=== PATIENT | female | born 1960 | race Caucasian/White ===

== ENCOUNTER 2018-11-27 16:06 | Inpatient (IN) | payer OTHER, MEDICARE ==
[~2018-11-27] VITALS: Ht 163.8 cm; Wt 131.8 kg
[~2018-11-27 16:06] MED LIST: ANTIVERT25 MG PO; ASPIRIN325 MG PO; ASPIRIN81 MG PO; BUMEX2 MG PO; CARDIZEM120 MG PO; CHLOR-TRIMETON12 MG PO; CHLORASEPTIC177 ML TOPICAL; CLEOCIN HCL150 MG PO; COUMADIN5 MG PO; DESERYL100 MG PO; GLUCOVANCE 5/501 TAB PO; HYDROCODONE-APA1 TAB PO; K-DUR20 MEQ PO; KLOR-CON M2020 MEQ PO; MIRALAX17 GM PO; NEO-SYNEPHRINE15 M3 NS; PLAVIX75 MG PO; PRAVACHOL40 MG PO; PRILOSEC20 MG PO; RYTHMOL SR225 MG PO; SINGULAIR10 MG PO; STOOL SOFTENER PO; TUSSIONEX PENN473 ML PO; VALIUM5 MG PO; VENTOLIN HFA18 GM INH
[2018-11-27] MEDS ORDERED: [UNRECOGNIZED DRUG - OTHER] (16:20)
[2018-11-27] MEDS ORDERED: NORVASC5 MG PO (16:20)
[2018-11-27] MEDS ORDERED: BASAGLAR K100 UNIT/1 SC (16:21)
[2018-11-27 17:00] LABS: BASOPHILS 0.3 % (0-2); EOSINOPHILS 1.2 % (0-7); HEMOGLOBIN 10.6 g/dL (12-16); IMMATURE GRANULOCYTES 0.4 % (0-5); LYMPHOCYTES 16.6 % (15-50); MCH 28.1 pg (26.0-34.0); MCHC 33.1 g/dL (31.0-37.0); MCV 84.9 fL (80.0-100.0); MONOCYTES 8.3 % (2-11); NEUTROPHILS 73.2 % (40-80); PLATELET COUNT 259 10x3/uL (130-400); RBC 3.77 10x6/uL (4.00-5.40); RDW 14.7 % (11.5-14.5); WBC 10.2 10x3/uL (4.8-10.8)
[2018-11-27 17:09] LABS: APPEARANCE CLEAR (CLEAR); BILIRUBIN NEGATIVE (NEGATIVE); COLOR YELLOW (YELLOW); GLUCOSE 100 mg/dL (NEGATIVE); KETONE NEGATIVE (NEGATIVE); NITRITE NEGATIVE (NEGATIVE); PROTEIN 1+ mg/dL (NEGATIVE); UROBILINOGEN NORMAL (NORMAL)
[2018-11-27 17:12] LABS: ALBUMIN 3.3 g/dL (3.4-5.0); ANION GAP 15.8 mmol/L (8-16); BILIRUBIN - TOTAL 0.33 mg/dL (0.2-1.3); CALCIUM 7.5 mg/dL (8.5-10.1); CARBON DIOXIDE 20.7 mmol/L (21.0-32.0); CREATININE - SERUM 2.3 mg/dL (0.6-1.3); POTASSIUM - SERUM 3.5 mmol/L (3.5-5.1); PROTEIN - SERUM 7.4 g/dL (6.4-8.2)
[2018-11-27 17:15] LABS: BACTERIA MODERATE /hpf (NONE SEEN); EPITHELIAL CELLS 0-5 /hpf (0-5)
[2018-11-27] MEDS ORDERED: ROBAXIN500 MG (20:21)
[2018-11-27] MEDS ORDERED: PHENERGAN25 M1 (20:22)
--- NOTE | 2018-11-27 20:53 | NUR ---
REPORT RECEIVED FROM ANTHONY CLEMENTE RN, PT HAS ARRIVED TO FLOOR BY WHEELCHAIR. ANSWERS QUESTIONS APPROPRIATELY. STATES WILL ASSIST HER IN APPLYING GOWN THEN SHE WILL PRESS CALL LIGHT TO BEGIN ARRIVAL DOCUMENTATION. INTORDUCED SELF TO PT. WILL CTM.
[2018-11-28 02:20] VITALS: BP 172/78; BMI 49.1
--- NOTE | 2018-11-28 02:24 | NUR ---
NOTIFIED WESLY PAYNE NURSE PRACTICIONER OF PT BLOOD PRESSURE OF 172/78, SHE ORDERED APRESOLINE 10 MG IV X1.
--- NOTE | 2018-11-28 05:54 | NUR ---
I have reviewed this patient and I concur with the Shift Assessment completed by the Licensed Practical Nurse today this shift.
[2018-11-28 06:16] LABS: APTT 35.8 SECONDS (22.8-39.4); INR 1.93 (0.85-1.17); PROTIME 21.4 SECONDS (11.6-15.0)
[2018-11-28 06:23] LABS: BASOPHILS 0.3 % (0-2); EOSINOPHILS 1.1 % (0-7); HEMATOCRIT 29.6 % (36.0-48.0); HEMOGLOBIN 9.6 g/dL (12-16); IMMATURE GRANULOCYTES 0.2 % (0-5); MCH 27.5 pg (26.0-34.0); MCHC 32.4 g/dL (31.0-37.0); MCV 84.8 fL (80.0-100.0); MEAN PLATELET VOLUME 10.5 fL (7.4-10.4); MONOCYTES 9.2 % (2-11); NEUTROPHILS 69.2 % (40-80); PLATELET COUNT 249 10x3/uL (130-400); RBC 3.49 10x6/uL (4.00-5.40); RDW 14.7 % (11.5-14.5); WBC 9.9 10x3/uL (4.8-10.8)
[2018-11-28 06:39] LABS: ANION GAP 17.6 mmol/L (8-16); CALCIUM 7.4 mg/dL (8.5-10.1); CARBON DIOXIDE 18.6 mmol/L (21.0-32.0); CREATININE - SERUM 1.9 mg/dL (0.6-1.3); MAGNESIUM - SERUM 1.3 mg/dL (1.8-2.4); PHOSPHOROUS 4.6 mg/dL (2.5-4.9); POTASSIUM - SERUM 3.2 mmol/L (3.5-5.1)
--- NOTE | 2018-11-28 07:12 | NUR ---
PT SLEEPING I ENTERED THE ROOM, HAS PUT RECLINER DIRECTLY IN FRONT OF THE DOOR, ASKED PT TO MOVE THE CHAIR SO WE COULD ENTER AND EXIT THE ROOM EASIER, MAN GRUNTED AND ROLLED ON HIS SIDE. DID NOT MOVE THE CHAIR. PT WOKE EASILY TO THE NOISE, NO COMPLAINTS/CONCERNS, ALL QUESTIONS ANSWERED TO THE BEST OF MY ABILITY. CL IN REACH, SRX2.
[2018-11-28 07:55] VITALS: BP 125/57
[2018-11-28 10:11] VITALS: Ht 163.8 cm; Wt 131.8 kg
[2018-11-28 11:02] LABS: % SATURATION 12 % (15-55); IRON 40 ug/dl (35-150); TOTAL IRON BIND CAPACITY 319 ug/dl (260-445); UNSAT IRON BIND CAPACITY 279 ug/dl (150-375)
[2018-11-28 12:25] VITALS: BP 159/51
[2018-11-28 13:37] LABS: ERYTHROCYTE SEDIMENTATION RATE 50 mm/hr (0-30)
[2018-11-28 16:02] VITALS: BP 164/75
[2018-11-28 20:00] VITALS: BP 146/82
--- NOTE | 2018-11-28 23:18 | NUR ---
INITIAL ROUNDS COMPLETED AT 1909 HRS. PT UP TO BR AT THAT TIME. FAMILY IN ROOM. ASSESSMENT COMPLETED AT 1954 HRS. VSS. ALERT AND ORIENTED TO PERSON, PLACE AND TIME. JIMENEZ. IV TO L HAND WITH BIACRB GOING AT 50C/HR. IV PATENT. SR PER CM HR 91. LUNGS DIMINISHED IN BASES BILAT. HEARTTONESWITH CLICK NOTED. 1+ PEDAL EDEMA NOTED. PM MEDS IGVEN. FSBS 267. S/S INSULIN GIVEN PER ORDERS. PT CURRENTLY RESTING WITH EYES CLOSED. RESP EVEN AND REGULAR. SR UP X2, CALL LIGHT WITHIN REACH.
[2018-11-29] VITALS: BP 138/64
--- NOTE | 2018-11-29 01:41 | NUR ---
PT RESTING WITH EYES CLOSED. RESP EVEN AND REGULAR. SR UP X2, CALL LIGHT WITHIN REAC. FAMILY AT BEDSIDE.
[2018-11-29 03:57] LABS: CREATININE - URINE 48.9 mg/dL (30-125)
[2018-11-29 04:00] LABS: APPEARANCE HAZY (CLEAR); BILIRUBIN NEGATIVE (NEGATIVE); COLOR YELLOW (YELLOW); GLUCOSE 500 mg/dL (NEGATIVE); KETONE NEGATIVE (NEGATIVE); NITRITE NEGATIVE (NEGATIVE); PROTEIN 2+ mg/dL (NEGATIVE); UROBILINOGEN NORMAL (NORMAL); WHITE CELLS - URINE 0-5 /hpf (0-5)
[2018-11-29 04:01] LABS: HYALINE CAST OCC /lpf (NONE SEEN)
[2018-11-29 04:03] LABS: PRO/CRE RATIO URINE 6.1 mg/g; PROTEIN - URINE 298.8 mg/dL (0.0-11.9)
--- NOTE | 2018-11-29 04:34 | NUR ---
PT RESTING WITH EYES CLOSED. RESP EVEN AND REGULAR. SR UP X2, CALL LIGHT WITHIN REACH AND FAMILY AT BEDSIDE.
[2018-11-29 05:27] LABS: BASOPHILS 0.3 % (0-2); EOSINOPHILS 1.1 % (0-7); HEMATOCRIT 28.2 % (36.0-48.0); HEMOGLOBIN 9.3 g/dL (12-16); IMMATURE GRANULOCYTES 0.2 % (0-5); LYMPHOCYTES 17.7 % (15-50); MCH 28.1 pg (26.0-34.0); MCV 85.2 fL (80.0-100.0); MEAN PLATELET VOLUME 10.6 fL (7.4-10.4); MONOCYTES 7.9 % (2-11); NEUTROPHILS 72.8 % (40-80); PLATELET COUNT 213 10x3/uL (130-400); RBC 3.31 10x6/uL (4.00-5.40); RDW 14.6 % (11.5-14.5); WBC 9.2 10x3/uL (4.8-10.8)
[2018-11-29 05:38] LABS: ANION GAP 17.4 mmol/L (8-16); CALCIUM 7.4 mg/dL (8.5-10.1); CARBON DIOXIDE 19.1 mmol/L (21.0-32.0); CREATININE - SERUM 1.9 mg/dL (0.6-1.3); MAGNESIUM - SERUM 1.6 mg/dL (1.8-2.4); POTASSIUM - SERUM 3.5 mmol/L (3.5-5.1)
[2018-11-29 05:42] LABS: INR 1.74 (0.85-1.17); PROTIME 19.7 SECONDS (11.6-15.0)
--- NOTE | 2018-11-29 06:36 | NUR ---
VSS THROUGHOUT NIGHT. PT DENIED ANY DISCOMFORT. AM FSBS 167. 2 UNITS REG INSULIN GIVEN SUB-Q TO UPPER R ARM. K+ 3.5. KCL 40MEQ PO GIVEN PER ELECTROLYTE PROTOCOL. NEEDS MET; WILL CONTINUE TO MONITOR.
--- NOTE | 2018-11-29 07:30 | NUR ---
PT AWKAE AND ORIENTED WHEN I ENTERED THE ROOM, C/O IV BEEPING, FIXED. PT STATES SHES VERY HOPEFULLY TO GO HOME TODAY. NO COMPLAINTS, CONCERNS VOICED THIS MORNING, ALL QUESTIONS ANSWERED TO THE BEST OF MY ABILITY. ROXANA HUGHES, SRX2. CHILDREN ARE SLEEPING IN THE FLOOR. ADVISED ALINE, PT STATES THEY'LL CONTINUE.
--- NOTE | 2018-11-29 10:23 | NUR ---
MEDICATED FOR PAIN AT THIS TIME. NO DISTRESS.
[2018-11-29 14:55] VITALS: BP 152/86
--- NOTE | 2018-11-29 18:48 | NUR ---
PT TOOK A SHOWER, ON HER WAY OUT OF THE SHOWER SHE BUMPED HER HAND ON THE WALL. I/V IS BAD. WILL REPLACE. NO COMPLAINTS/CONCERNS OR QUESTIONS. CL IN REACH, SRX2.
[2018-11-29 20:00] VITALS: BP 146/78
--- NOTE | 2018-11-29 23:41 | NUR ---
INITIAL ROUNDS COMPLETED AT 1914 HRS. PT CONVERSING WITH FAMILY NO DISTRESS NOTED. NO IV. IV STARTED AT 1954 HRS WITH ATTEMPT X2 TO L HAND. PT TOLERATED ACTIVITY WELL. BICARB DRIP RESTATED AT 50CC/HR. ASSESSMENT COMPLETED AT 2039 HRS. VSS. ALERT AND ORIENTED TO PERSON, PLACE AND TIME. JIMENEZ. PALPABLE PERIPHERAL PULSES. LUNGS DIMINISHED IN BASES BILAT. SR PER CM HR 91. PM FSBS 254. INSULING GIVEN SUB-Q TO UPPER R ARM PER S/S. PM MEDS GIVEN. PT CURRENTLY RESTING WITH EYES CLOSED. RESP EVEN AND REGULAR. SR UP X2,CALL LIGHT WITHIN REACH.
[2018-11-30] VITALS: BP 162/92
--- NOTE | 2018-11-30 01:51 | NUR ---
PT RESTING WITH EYES CLOSED. RESP EVEN AND REGULAR. SR UP X2, CALL LIGHT WITHIN REACH.
[2018-11-30 04:00] VITALS: BP 125/80
--- NOTE | 2018-11-30 04:28 | NUR ---
PT AWAKE; DENIES ANY DISCOMFORT. SR UP X2, CALL LIGHT WITHIN REACH.
[2018-11-30 05:40] LABS: BASOPHILS 0.4 % (0-2); EOSINOPHILS 1.4 % (0-7); HEMATOCRIT 28.1 % (36.0-48.0); HEMOGLOBIN 9.1 g/dL (12-16); IMMATURE GRANULOCYTES 0.2 % (0-5); LYMPHOCYTES 22.7 % (15-50); MCH 27.9 pg (26.0-34.0); MCHC 32.4 g/dL (31.0-37.0); MCV 86.2 fL (80.0-100.0); MEAN PLATELET VOLUME 10.4 fL (7.4-10.4); MONOCYTES 10.6 % (2-11); NEUTROPHILS 64.7 % (40-80); PLATELET COUNT 222 10x3/uL (130-400); RBC 3.26 10x6/uL (4.00-5.40); RDW 14.7 % (11.5-14.5)
[2018-11-30 05:53] LABS: INR 1.42 (0.85-1.17); PROTIME 16.7 SECONDS (11.6-15.0)
--- NOTE | 2018-11-30 06:01 | NUR ---
VSS THROUGHOUT NIGHT. SR PER CM. PT DENIED ANY DISCOMFORT. RESTED WELL DURING SHIFT. NEEDS MET; WILL CONTINUE TO MONITOR.
[2018-11-30 06:14] LABS: ANION GAP 13.6 mmol/L (8-16); CALCIUM 7.6 mg/dL (8.5-10.1); CARBON DIOXIDE 21.8 mmol/L (21.0-32.0); CREATININE - SERUM 2.1 mg/dL (0.6-1.3); MAGNESIUM - SERUM 1.7 mg/dL (1.8-2.4); POTASSIUM - SERUM 4.4 mmol/L (3.5-5.1)
[2018-11-30] MEDS ORDERED: LEVOFLOXACIN500 MG PO (10:25)
[2018-11-30 11:43] VITALS: BP 156/56
--- NOTE | 2018-11-30 12:48 | NUR ---
PATIENT IS BEING DISCHARGED. ALL DISCHARGE PAPERWORK HAS BEEN DONE AND SIGNED. IV REMOVED WITH CATHETER INTACT. PATIENT FAMILY AT BEDSIDE. ALL PATIENT BELONGINGS HAVE BEEN REMOVED FROM THE ROOM, AND SHE IS GOING DOWNSTAIRS BY WHEEL CHAIR.
--- NOTE | 2018-11-30 14:30 | EC ---
PATIENT:REANNA RADER DATE OF SERVICE: 11/27/18 SEX: F MEDICAL RECORD: [id number] DATE OF : 62 LOCATION:D.M2 D.213 AGE OF PATIENT: 58 ADMISSION DATE: 11/27/18 REFERRING PHYSICIAN: INTERPRETING PHYSICIAN: LITTLE COTA MD ECHOCARDIOGRAM REPORT ECHO CHARGES 4 ECHO COMPLETE Date: 11/28/18 CLINICAL DIAGNOSIS: PEDIAL EDEMA ECHOCARDIOGRAPHIC MEASUREMENTS (adult normal given) AC root (d.<3.7cm) 2.6 cm LV Septum d (<1.2 cm> 1.1 cm Valve Excursion 1.5 cm LV Septum (systole) 1.2 cm Left Atria (s.<4.0cm> 5.0 cm LVPW d(<1.2cm) 0.9 cm RV (d.<2.3cm) 3.0 cm LVPW (sytole) 1.0 cm LV diastole(<5.6CM) 5.6 cm MV E-F(>70mm/sec) cm LV systole 4.7 cm LVOT Diameter 1.8 cm MV exc.(>10mm) cm Est.ejection fraction (50-75%) % DOPPLER: LVIT cm/sec A 150 cm/sec E 218 cm/sec LA cm/sec RVSP 36.2 mmHg LVOT 113 cm/sec AOP1/2T m/s Asc. Ao 191 cm/sec RVOT 65 cm/sec RA cm/sec PA 130 cm/sec AV Gradient Peak 14.5 mmHg AV Mean 7.4 mmHg AV Area 1.5 cm MV Gradient Peak 24.2 mmHg MV Mean 12.7 mmHg MV Area cm COMMENTS: Turret Punch Press Operator: Norma HURTADO Parachute Rigger: 3 Dr. Arevalo TAPE# PACS Pericardial Effusion N DATE OF SERVICE: Adequate 2-D echo, color-flow and spectral Doppler, and M-mode. No LVH. LV internal dimensions are normal. Wall motion is normal. EF is greater than or equal to 55%. Aortic valve sclerosis without stenosis by Doppler interrogation. Mechanical prosthetic mitral valve is noted with acceptable Doppler velocity and mild MR. Right-sided chambers are grossly normal. Mild TR. ECHOCARDIOGRAM REPORT [id number] REANNA RADER TRANSINT:[id number] Voice Confirmation ID: [id number] DOCUMENT ID: [id number] LITTLE COTA MD at 1430 CC: [id number] DICTATION DATE: 11/29/18 1045 COMPONENT DESIGN ENGINEER: 11/29/18 1414 DIS IN 11/30/18 [facility] [address] [id number]
--- NOTE | 2018-11-30 17:13 | MORECARE ---
CASE MANAGEMENT DISCHARGE SUMMARY PATIENT: REANNA RADER UNIT: [id number] ADM DATE: 11/27/18 AGE: 58 : 62 SEX: F ROOM/BED: D.9038 AUTHOR: WILLAM,DOC PHYSICIAN: REFERRING PHYSICIAN: MORGAN MAYORGA MD DATE OF SERVICE: 11/30/18 Discharge Plan Patient Name: REANNA RADER Facility: [facility]:[place] : 1960 Planned Disposition: Home Anticipated Discharge Date: 11/30/18 Discharge Date: 11/30/2018 Expected LOS: 3 Initial Reviewer: [email or web address] Initial Review Date: 11/30/2018 Generated: 11/30/18 6:13 pm Comments DCP- Discharge Planning Updated by [email or web address]: Darnell Navarro on 11/30/18 4:[address] Patient Name: REANNA RADER Admission Status: ER Accout number: [id number] Admission Date: 11-27-2018 : 1960 Admission Diagnosis: Attending: MORGAN MAYORGA Current LOS: 3 Anticipated DC Date: 11-30-2018 Planned Disposition: Home Primary Insurance: [facility] Discharge Planning Comments: CM MET WITH PT IN ROOM TO DISCUSS DISCHARGE PLANNING AND NEEDS. PT REPORTS LIVING AT HOME INDEPENDENTLY WITH SPOUSE. PT HAS NO MEDICAL EQUIPMENT AND NO OUTSIDE SERVICES ASSISTING IN THE HOME. CM DISCUSSED AVAILABILITY OF HOME HEALTH, REHAB SERVICES AND MEDICAL EQUIPMENT. PT DENIES DISCHARGE NEEDS, REPORTS HER SPOUSE WILL PICK HER UP FOR DISCHARGE HOME. IMPORTANT MESSAGE FROM MEDICARE PROVIDED AND EXPLAINED. Microfilmer: Darnell Navarro DCPIA - Discharge Planning Initial Assessment Updated by [email or web address]: Darnell Navarro on 11/30/18 5:06 pm * Is the patient Alert and Oriented? Yes * How many steps to enter\exit or inside your home? * PCP ODETTE SALAZAR APN * [facility] [place] * Preadmission Environment Home with Family * ADLs Independent * Equipment None * Other Equipment NO MEDICAL EQUIPMENT PROVIDER PREFERENCE * List name and contact numbers for known caregivers / representatives who currently or will assist patient after discharge: LACEY RADER, SPOUSE, * Verbal permission to speak to the caregivers and representatives has been obtained from the patient. N/A * Community resources currently utilized None * Please name any agencies selected above. NONE * Additional services required to return to the preadmission environment? No * Can the patient safely return to the preadmission environment? Yes * Has this patient been hospitalized within the prior 30 days at any hospital? No Coverage Notice Reviewer: [id number] - Darnell Sterlingwell Notice Issued Date-Time: 11/30/2018 11:35 Notice Type: IM Discharge Notice Notice Delivered To: Patient Relationship to Patient: Screw Driver Operator Name: Delivery Method: HAND - Hand Delivered Jamila Days: Prior Verbal Notification: Recipient Understood Notice: Yes Recipient Signature: Yes Med Rec Note Co-signed by Attending: Coverage Notice Comment: Patient Name: REANNA RADER Page [phone] at 1713 All edits/amendments must be made on the electronic document DICTATION DATE: 11/30/181712 TOOL MAINTENANCE TECHNICIAN: KOMAL 11/30/181712 RPT#: [id number] DC DATE:11/30/18 STATUS: DIS IN [facility] [address] [place] [address] END OF REPORT
[2018-12-01 15:10] LABS: SPE - A/G RATIO 1.1 (0.7-1.7); SPE - ALBUMIN 3.1 g/dL (2.9-4.4); SPE - ALPHA-1 GLOBULIN 0.2 g/dL (0.0-0.4); SPE - ALPHA-2 GLOBULIN 0.6 g/dL (0.4-1.0); SPE - BETA GLOBULIN 1.1 g/dL (0.7-1.3); SPE - GAMMA GLOBULIN 0.8 g/dL (0.4-1.8); SPE - M-SPIKE Not Observed g/dL (Not Observed); SPE - TOTAL PROTEIN 5.9 g/dL (6.0-8.5)
[2018-12-02 16:08] LABS: UPE RAND - ALBUMIN 60.5 % (()); UPE RAND - ALPHA 1 GLOBULIN 7.1 % (()); UPE RAND - ALPHA 2 GLOBULIN 8.1 % (()); UPE RAND - GAMMA GLOBULIN 10.4 % (())
== END 2018-11-30 13:38 | disposition home or self-care (01) | DRG 682 ==
LOC: D.ER 16:06 → D.M2 20:25
PROVIDERS: Family Medicine; Internal Medicine Nephrology; ADMIT Internal Medicine Nephrology; ATTEND Internal Medicine Nephrology
DX: N17.9 Acute kidney failure, unspecified (principal); I50.33 Acute on chronic diastolic (congestive) heart failure; N39.0 Urinary tract infection, site not specified; F17.213 Nicotine dependence, cigarettes, with withdrawal; Z68.42 Body mass index [BMI] 45.0-49.9, adult; I11.0 Hypertensive heart disease with heart failure; E87.6 Hypokalemia; E83.42 Hypomagnesemia; D64.9 Anemia, unspecified; E78.5 Hyperlipidemia, unspecified; E11.9 Type 2 diabetes mellitus without complications; E66.01 Morbid (severe) obesity due to excess calories; J44.9 Chronic obstructive pulmonary disease, unspecified; I48.91 Unspecified atrial fibrillation; K21.9 Gastro-esophageal reflux disease without esophagitis; I25.10 Atherosclerotic heart disease of native coronary artery without angina pectoris; E83.51 Hypocalcemia; E86.9 Volume depletion, unspecified; Z95.2 Presence of prosthetic heart valve

== ENCOUNTER 2019-06-25 15:32 | Inpatient (IN) | payer OTHER, MEDICARE ==
[~2019-06-25] VITALS: Ht 163.8 cm; Wt 125.5 kg
[~2019-06-25 15:32] MED LIST changes: +BASAGLAR K100 UNIT/1 SC; +LEVOFLOXACIN500 MG PO; +METHOCARBAMOL500 MG PO; +NORVASC5 MG PO; +PHENERGAN25 M1; +[UNRECOGNIZED DRUG - OTHER]
[2019-06-25 16:06] LABS: BASOPHILS 0.2 % (0-2); EOSINOPHILS 0.5 % (0-7); HEMATOCRIT 22.9 % (36.0-48.0); IMMATURE GRANULOCYTES 0.5 % (0-5); LYMPHOCYTES 12.4 % (15-50); MCH 26.7 pg (26.0-34.0); MCHC 31.4 g/dL (31.0-37.0); MCV 84.8 fL (80.0-100.0); MEAN PLATELET VOLUME 9.7 fL (7.4-10.4); MONOCYTES 6.8 % (2-11); NEUTROPHILS 79.6 % (40-80); RDW 15.7 % (11.5-14.5); WBC 13.7 10x3/uL (4.8-10.8)
[2019-06-25 16:18] LABS: APTT 57.9 SECONDS (22.8-39.4)
[2019-06-25 16:23] LABS: HEMOGLOBIN 7.2 g/dL (12-16); PLATELET COUNT 354 10x3/uL (130-400)
[2019-06-25 16:33] LABS: INR 4.98 (0.85-1.17); PROTIME 45.2 SECONDS (11.6-15.0)
[2019-06-25 16:38] LABS: ALBUMIN 2.9 g/dL (3.4-5.0); ALKALINE PHOSPHATASE 130 U/L (30-120); ALT (SGPT) 28 U/L (10-68); BILIRUBIN - TOTAL 0.23 mg/dL (0.2-1.3); CARBON DIOXIDE 15.3 mmol/L (21.0-32.0); CHLORIDE - SERUM 109 mmol/L (98-107); CKMB 0.8 U/L (0.0-3.6); CREATINE KINASE 210 UL (21-215); CREATININE - SERUM 3.7 mg/dL (0.6-1.3); POTASSIUM - SERUM 5.4 mmol/L (3.5-5.1); PRO BNP 1584 pg/mL (0-125); PROTEIN - SERUM 7.2 g/dL (6.4-8.2); SODIUM 140 mmol/L (136-145); UREA NITROGEN 124 mg/dL (7-18); eGFR NON AFRICAN AMERICAN 13 mL/min (90-120)
[2019-06-25 16:39] LABS: CALC OSMOLALITY 324 mosm/kg (275-300); GLUCOSE 215 mg/dL (74-106)
[2019-06-25 16:43] LABS: CALCIUM 5.3 mg/dL (8.5-10.1); TROPONIN-I < 0.017 ng/mL (0.000-0.060)
--- NOTE | 2019-06-25 16:43 | NUR ---
LAB CALLED WITH CRITICAL CALCIUM 5.2
[2019-06-25 17:30] VITALS: BP 131/54
--- NOTE | 2019-06-25 17:40 | NUR ---
GUAIC STOOL NEGATIVE. DR JUNIOR NOTIFIED
--- NOTE | 2019-06-25 17:50 | NUR ---
BLOOD TRANSFUSION EXPL TO PT, VERB UNDER, CONSENT SIGNED AND WITNESSED
--- NOTE | 2019-06-25 19:04 | NUR ---
BS REPORT TO AMBIKA CRUZ
[2019-06-25 19:17] VITALS: BP 136/46
[2019-06-25 19:32] VITALS: BP 120/47
[2019-06-25 19:40] VITALS: BP 115/79
--- NOTE | 2019-06-25 20:40 | NUR ---
BLOOD TRANSUFUSION INFUSING ON TRANSPORT TO THE FLOOR. 150ML INFUSED IN ER.
--- NOTE | 2019-06-25 20:49 | NUR ---
PT TO ROOM 2132 VIA WHEELCHAIR ACCOMPANIED BY HOSPITAL STAFF.
[2019-06-25] MEDS ORDERED: LISINOPRIL5 MG PO (23:21)
[2019-06-26] VITALS (7 sets, daily range): BP systolic 115–144; BP diastolic 46–70; Ht 163.8 cm; Wt 125.5 kg
[2019-06-26 06:13] LABS: BASOPHILS 0.2 % (0-2); EOSINOPHILS 0.9 % (0-7); HEMATOCRIT 25.7 % (36.0-48.0); HEMOGLOBIN 8.3 g/dL (12-16); IMMATURE GRANULOCYTES 0.5 % (0-5); LYMPHOCYTES 24.1 % (15-50); MCH 27.3 pg (26.0-34.0); MCHC 32.3 g/dL (31.0-37.0); MCV 84.5 fL (80.0-100.0); MEAN PLATELET VOLUME 9.8 fL (7.4-10.4); MONOCYTES 7.8 % (2-11); NEUTROPHILS 66.5 % (40-80); PLATELET COUNT 336 10x3/uL (130-400); RBC 3.04 10x6/uL (4.00-5.40); RDW 15.8 % (11.5-14.5)
[2019-06-26 06:33] LABS: ALBUMIN 2.9 g/dL (3.4-5.0); ANION GAP 20.8 mmol/L (8-16); BILIRUBIN - TOTAL 0.29 mg/dL (0.2-1.3); CARBON DIOXIDE 15.8 mmol/L (21.0-32.0); CREATININE - SERUM 3.5 mg/dL (0.6-1.3); POTASSIUM - SERUM 4.6 mmol/L (3.5-5.1)
[2019-06-26 06:50] LABS: CALCIUM 5.8 mg/dL (8.5-10.1)
--- NOTE | 2019-06-26 07:42 | NUR ---
RECIEVED REPORT. PATIENT IS ALERT AND AWAKE . DENIES ANY NEEDS AT THIS TIME.
--- NOTE | 2019-06-26 16:36 | NUR ---
LOW MAG ACKNOWLEDGED. TREATING WITH EP ORDERED.
--- NOTE | 2019-06-26 19:10 | NUR ---
BEDSIDE REPORT RECEIVED FROM DAY SHIFT, PT CARE ASSUMED. WROTE NAME ON BOARD. PT SITTING UP IN BED WITH EYES CLOSED, RR EVEN AND NONLABORED, NO S/S OF DISTRESS, AROUSES EASILY TO VOICE, AAOX4. DENIES ANY NEEDS AT THIS TIME. BED IN LOWEST POSITION, SR X2, CALL LIGHT WITHIN REACH. WILL CONTINUE TO MONITOR.
[2019-06-26 19:23] LABS: BILIRUBIN NEGATIVE (NEGATIVE); GLUCOSE 50 mg/dL (NEGATIVE); KETONE NEGATIVE (NEGATIVE); NITRITE NEGATIVE (NEGATIVE); UROBILINOGEN NORMAL (NORMAL); WHITE CELLS - URINE NSEEN /hpf (NEGATIVE)
[2019-06-26 19:24] LABS: EPITHELIAL CELLS 0-5 /hpf (0-5); RED CELLS - URINE OCC /hpf (0-5)
[2019-06-27] VITALS: BP 143/58
[2019-06-27 04:00] VITALS: BP 134/62
[2019-06-27 05:50] LABS: BASOPHILS 0.2 % (0-2); EOSINOPHILS 0.8 % (0-7); HEMATOCRIT 22.5 % (36.0-48.0); IMMATURE GRANULOCYTES 0.5 % (0-5); LYMPHOCYTES 24.1 % (15-50); MCHC 32.4 g/dL (31.0-37.0); MCV 83.3 fL (80.0-100.0); MEAN PLATELET VOLUME 9.6 fL (7.4-10.4); MONOCYTES 7.2 % (2-11); NEUTROPHILS 67.2 % (40-80); PLATELET COUNT 279 10x3/uL (130-400); RDW 15.8 % (11.5-14.5); WBC 8.8 10x3/uL (4.8-10.8)
[2019-06-27 06:22] LABS: ALBUMIN 2.5 g/dL (3.4-5.0); ANION GAP 20.6 mmol/L (8-16); BILIRUBIN - TOTAL 0.23 mg/dL (0.2-1.3); CARBON DIOXIDE 16.7 mmol/L (21.0-32.0); CREATININE - SERUM 2.8 mg/dL (0.6-1.3); POTASSIUM - SERUM 4.3 mmol/L (3.5-5.1); PROTEIN - SERUM 6.4 g/dL (6.4-8.2)
[2019-06-27 06:24] LABS: CALCIUM 5.7 mg/dL (8.5-10.1); MAGNESIUM - SERUM 0.9 mg/dL (1.8-2.4)
[2019-06-27 06:30] LABS: PROTIME 38.2 SECONDS (11.6-15.0)
[2019-06-27 07:16] LABS: HEMOGLOBIN 7.3 g/dL (12-16)
--- NOTE | 2019-06-27 07:55 | NUR ---
RECIEVED REPORT. PATIENT IS ALERT AND AWAKE AND DENIES ANY NEEDS AT THIS TIME.
[2019-06-27 10:00] VITALS: BP 116/57
--- NOTE | 2019-06-27 10:54 | NUR ---
BLOOD CONSENTS SIGNED AND IN THE CHART. WHEN LAB CALLS WILL TRANSFUSE.
[2019-06-27 14:14] LABS: % SATURATION 13 % (15-55); IRON 34 ug/dl (35-150); TOTAL IRON BIND CAPACITY 249 ug/dl (260-445); UNSAT IRON BIND CAPACITY 215 ug/dl (150-375)
[2019-06-27 16:37] VITALS: BP 156/70
[2019-06-27 20:00] VITALS: BP 132/68
--- NOTE | 2019-06-27 22:38 | NUR ---
INITIAL ROUNDS COMPLETED AT 1914 HRS. PT DENIED ANY DISCOMFORT. ASSESSMENT COMPLETED AT 1999 HRS. VSS. ALERT AND ORIENTED TO PERSON, PLACE AND TIME. JIMENEZ. IV TO LFA SL. LUNGS DIMINSIHED IN BASES BILAT. 2+ PEDAL EDEMA NOTED. 2ND UNIT OF PRBC'SINITIALTED AT 2024 HRS. VSS. PM MEDS GIVEN FSBS 210. 4 UNITS REG INSULIN GIVEN SUB-Q TO UPPER R ARM. NORCO PO GIVEN FOR C/O BACK PAIN PT CURRETNLY TALKING ON PHONE, NO DISTRESS NOTED. FAMILY AT BEDSIDE. SR UP X2,CALL LIGHT WITHIN REACH.
--- NOTE | 2019-06-27 23:55 | NUR ---
2ND UNIT PRBC'S INFUSED. NO REACTION NOTED. FAMILY AT BEDSIDE.
[2019-06-28 00:30] VITALS: BP 129/63
[2019-06-28 00:41] LABS: BASOPHILS 0.3 % (0-2); EOSINOPHILS 0.9 % (0-7); IMMATURE GRANULOCYTES 0.6 % (0-5); LYMPHOCYTES 19.7 % (15-50); MCH 27.4 pg (26.0-34.0); MCHC 32.9 g/dL (31.0-37.0); MCV 83.2 fL (80.0-100.0); MEAN PLATELET VOLUME 9.4 fL (7.4-10.4); NEUTROPHILS 70.5 % (40-80); PLATELET COUNT 269 10x3/uL (130-400); RDW 15.7 % (11.5-14.5); WBC 9.1 10x3/uL (4.8-10.8)
[2019-06-28 00:43] LABS: HEMATOCRIT 28.3 % (36.0-48.0); HEMOGLOBIN 9.3 g/dL (12-16)
--- NOTE | 2019-06-28 03:32 | NUR ---
PT AWAKE; DENIES ANY DISCOMFORT. SR UP X2,CALL LIGHT WITHIN REACH AND FAMILY AT BEDSIDE.
[2019-06-28 04:00] VITALS: BP 125/48
--- NOTE | 2019-06-28 05:46 | NUR ---
VSS THROUGHOUT NIGHT. SR PER CM. PT STATES NORCO HELPED CONTROL HER PAIN. NEEDS MET; WILL CONTINUE TO MONITOR.
[2019-06-28 06:39] LABS: BASOPHILS 0.2 % (0-2); EOSINOPHILS 1.3 % (0-7); HEMATOCRIT 27.2 % (36.0-48.0); HEMOGLOBIN 8.8 g/dL (12-16); IMMATURE GRANULOCYTES 0.4 % (0-5); LYMPHOCYTES 22.8 % (15-50); MCH 27.2 pg (26.0-34.0); MCHC 32.4 g/dL (31.0-37.0); MCV 84.2 fL (80.0-100.0); MEAN PLATELET VOLUME 9.8 fL (7.4-10.4); MONOCYTES 8.4 % (2-11); NEUTROPHILS 66.9 % (40-80); PLATELET COUNT 264 10x3/uL (130-400); RBC 3.23 10x6/uL (4.00-5.40); RDW 16.1 % (11.5-14.5); WBC 8.4 10x3/uL (4.8-10.8)
[2019-06-28 07:13] LABS: ALBUMIN 2.6 g/dL (3.4-5.0); ANION GAP 19.1 mmol/L (8-16); BILIRUBIN - TOTAL 0.3 mg/dL (0.2-1.3); CARBON DIOXIDE 18.2 mmol/L (21.0-32.0); CREATININE - SERUM 2.3 mg/dL (0.6-1.3); POTASSIUM - SERUM 4.3 mmol/L (3.5-5.1); PROTEIN - SERUM 6.5 g/dL (6.4-8.2)
[2019-06-28 07:18] LABS: INR 2.45 (0.85-1.17); PROTIME 26.2 SECONDS (11.6-15.0)
--- NOTE | 2019-06-28 07:26 | NUR ---
PATIENT IS RESTING QUIETLY AT THIS TIME WITH EYES CLOSED. AT BEDSIDE. DENIES ANY NEEDS AT THIS TIME.
[2019-06-28 07:46] LABS: MAGNESIUM - SERUM 1.3 mg/dL (1.8-2.4)
[2019-06-28 07:51] LABS: CALCIUM 6.4 mg/dL (8.5-10.1)
[2019-06-28 08:34] VITALS: BP 143/70
[2019-06-28 10:26] LABS: PATH REVIEW PERIPHERAL SMEAR REVIEWED
[2019-06-28 11:00] VITALS: BP 126/60
--- NOTE | 2019-06-28 19:10 | NUR ---
PT ALERT AND AWAKE DENIES NEEDS AT THIS TIME BED LOW AND LOCKED CALL LIGHT IS WITH PT
[2019-06-28 20:00] VITALS: BP 162/81
[2019-06-29] VITALS: BP 130/63
[2019-06-29 04:00] VITALS: BP 135/68
--- NOTE | 2019-06-29 05:34 | NUR ---
I have reviewed this patient and I concur with the Shift Assessment completed by the Licensed Practical Nurse today this shift.
[2019-06-29 05:40] LABS: BASOPHILS 0.2 % (0-2); HEMATOCRIT 26.5 % (36.0-48.0); HEMOGLOBIN 8.4 g/dL (12-16); IMMATURE GRANULOCYTES 0.3 % (0-5); LYMPHOCYTES 24.3 % (15-50); MCH 27.3 pg (26.0-34.0); MCHC 31.7 g/dL (31.0-37.0); MEAN PLATELET VOLUME 9.6 fL (7.4-10.4); MONOCYTES 10.9 % (2-11); NEUTROPHILS 63.3 % (40-80); PLATELET COUNT 246 10x3/uL (130-400); RBC 3.08 10x6/uL (4.00-5.40); RDW 16.1 % (11.5-14.5); WBC 8.7 10x3/uL (4.8-10.8)
[2019-06-29 06:33] LABS: ANION GAP 17.4 mmol/L (8-16); CREATININE - SERUM 2.4 mg/dL (0.6-1.3); POTASSIUM - SERUM 4.4 mmol/L (3.5-5.1)
[2019-06-29 06:59] LABS: MAGNESIUM - SERUM 1.8 mg/dL (1.8-2.4)
[2019-06-29 07:01] LABS: CALCIUM 6.4 mg/dL (8.5-10.1)
[2019-06-29 07:50] LABS: PROTIME 21.1 SECONDS (11.6-15.0)
[2019-06-29 07:52] LABS: INR 1.85 (0.85-1.17)
[2019-06-29 09:41] VITALS: BP 120/52
[2019-06-29 12:47] VITALS: BP 111/58
--- NOTE | 2019-06-29 13:49 | NUR ---
CALLED AND LEFT VOICEMAIL WITH KAREN RENAL SAFETY RISK LEAD IF IT IS OK FOR PT TO DC. WILL AWAIT A CALL BACK.
--- NOTE | 2019-06-29 14:45 | NUR ---
SPOKE WITH KAREN LUNA AND SHE STATES PT IS OK TO DC TODAY AND TO MAKE A F/U WITH RENAL FOR IN TWO WEEKS.
--- NOTE | 2019-06-29 15:05 | NUR ---
I have reviewed this patient and I concur with the Shift Assessment completed by the Licensed Practical Nurse today this shift.
--- NOTE | 2019-06-29 15:11 | NUR ---
I CALLED KAREN EAGLE APN TO CLARIFY BLOOD PRESSURE MEDS PER ORDERED. NEW ORDERES RECEIVED.
[2019-06-29] MEDS ORDERED: LISINOPRIL5 MG PO (15:12)
--- NOTE | 2019-06-29 16:41 | NUR ---
PT TAKEN DOWN VIA WC BY TRAFFIC LINE PAINTER AND LEFT WITH SPOUSE IN PERSONAL VEHICLE. PT HAS ALL OF BELONGINGS.
--- NOTE | 2019-06-29 17:48 | MORECARE ---
CASE MANAGEMENT DISCHARGE SUMMARY PATIENT: REANNA RADER UNIT: [id number] ADM DATE: 06/25/19 AGE: 59 : 62 SEX: F ROOM/BED: D.2132 AUTHOR: DEEDEE QUARLES PHYSICIAN: REFERRING PHYSICIAN: MORGAN MAYORGA MD DATE OF SERVICE: 06/29/19 Discharge Plan Patient Name: REANNA RADER Facility: [facility]:[place] : 1960 Planned Disposition: Home Anticipated Discharge Date: 06/29/19 Discharge Date: 06/29/2019 Expected LOS: 4 Initial Reviewer: [email or web address] Initial Review Date: 06/29/2019 Generated: 06/29/19 6:48 pm Patient Name: REANNA RADER Page [phone] at 1748 All edits/amendments must be made on the electronic document DICTATION DATE: 06/29/191747 FUEL CELL REPAIRER: KOMAL 06/29/191747 RPT#: [id number] DC DATE:06/29/19 STATUS: DIS IN [facility] [address] [place] [address] END OF REPORT
--- NOTE | 2019-06-29 17:56 | MORECARE ---
CASE MANAGEMENT DISCHARGE SUMMARY PATIENT: REANNA RADER UNIT: [id number] ADM DATE: 06/25/19 AGE: 59 : 62 SEX: F ROOM/BED: D.1461 AUTHOR: WILLAM,DOC PHYSICIAN: REFERRING PHYSICIAN: MORGAN MAYORGA MD DATE OF SERVICE: 06/29/19 Discharge Plan Patient Name: REANNA RADER Facility: [facility]:[place] : 1960 Planned Disposition: Home Anticipated Discharge Date: 06/29/19 Discharge Date: 06/29/2019 Expected LOS: 4 Initial Reviewer: [email or web address] Initial Review Date: 06/29/2019 Generated: 06/29/19 6:56 pm Comments DCP- Discharge Planning Updated by [email or web address]: Darnell Navarro on 06/29/19 4:[address] Patient Name: REANNA RADER Admission Status: ER Accout number: [id number] Admission Date: 06-25-2019 : 1960 Admission Diagnosis: Attending: MORGAN MAYORGA Current LOS: 4 Anticipated DC Date: 06-29-2019 Planned Disposition: Home Primary Insurance: [facility] Discharge Planning Comments: CM MET WITH PT IN ROOM TO DISCUSS DISCHARGE PLANNING AND NEEDS. PT REPORTS LIVING AT HOME INDEPENDENTLY WITH HER SPOUSE. PT HAS GLUCOMETER WITH NO MEDICAL EQUIPMENT PROVIDER PREFERENCE. PT HAS NO OUTSIDE SERVICES ASSISTING IN THE HOME. CM DISCUSSED AVAILABILITY OF HOME HEALTH, REHAB SERVICES AND MEDICAL EQUIPMENT. PT DENIES DISCHARGE NEEDS, REPORTS HER SPOUSE WILL PICK HER UP FOR DISCHARGE HOME. IMPORTANT MESSAGE FROM MEDICARE PROVIDED AND EXPLAINED. General Internist And Physician Leader: Darnell Navarro DCPIA - Discharge Planning Initial Assessment Updated by [email or web address]: Darnell Navarro on 06/29/19 5:48 pm * Is the patient Alert and Oriented? Yes * How many steps to enter\exit or inside your home? * PCP FRANKLIN SALAZAR * [facility] [place] [facility] * Preadmission Environment Home with Family * ADLs Independent * Equipment Glucometer * Other Equipment NO MEDICAL EQUIPMENT PROVIDER PREFERENCE * List name and contact numbers for known caregivers / representatives who currently or will assist patient after discharge: LACEY RADER, SPOUSE, * Verbal permission to speak to the caregivers and representatives has been obtained from the patient. N/A * Community resources currently utilized None * Please name any agencies selected above. NONE * Additional services required to return to the preadmission environment? No * Can the patient safely return to the preadmission environment? Yes * Has this patient been hospitalized within the prior 30 days at any hospital? No Coverage Notice Reviewer: [email or web address] Brenda Navarro Notice Issued Date-Time: 06/29/2019 15:35 Notice Type: IM Discharge Notice Notice Delivered To: Patient Relationship to Patient: Forensics Analyst Name: Delivery Method: HAND - Hand Delivered Jamila Days: Prior Verbal Notification: Recipient Understood Notice: Yes Recipient Signature: Yes Med Rec Note Co-signed by Attending: Coverage Notice Comment: Last DP export: 06/29/19 4:48 p Patient Name: REANNA RADER Page [phone] at 1756 All edits/amendments must be made on the electronic document DICTATION DATE: 06/29/191755 CONTAINER FINISHING INSPECTOR: KOMAL 06/29/191755 RPT#: [id number] DC DATE:06/29/19 STATUS: DIS IN [facility] [address] [place] [address] END OF REPORT
== END 2019-06-29 16:43 | disposition home or self-care (01) | DRG 683 ==
LOC: D.ER 15:32 → D.M2 19:07
PROVIDERS: Family Medicine; Internal Medicine Nephrology; ADMIT Internal Medicine Nephrology; ATTEND Internal Medicine Nephrology
DX: N17.9 Acute kidney failure, unspecified (principal); E87.2 Acidosis; F17.213 Nicotine dependence, cigarettes, with withdrawal; I13.0 Hypertensive heart and chronic kidney disease with heart failure and stage 1 through stage 4 chronic kidney disease, or unspecified chronic kidney disease; I50.22 Chronic systolic (congestive) heart failure; E87.0 Hyperosmolality and hypernatremia; T45.515A Adverse effect of anticoagulants, initial encounter; I48.91 Unspecified atrial fibrillation; E11.22 Type 2 diabetes mellitus with diabetic chronic kidney disease; E11.65 Type 2 diabetes mellitus with hyperglycemia; N18.9 Chronic kidney disease, unspecified; K21.9 Gastro-esophageal reflux disease without esophagitis; D63.1 Anemia in chronic kidney disease; F41.9 Anxiety disorder, unspecified; E83.51 Hypocalcemia

== ENCOUNTER 2019-12-28 13:53 | Emergency (ER) | payer OTHER, MEDICARE ==
[~2019-12-28] VITALS: Ht 163.8 cm; Wt 124.5 kg
[~2019-12-28 13:53] MED LIST changes: +LISINOPRIL5 MG PO
[2019-12-28 13:59] VITALS: Ht 163.8 cm; Wt 124.5 kg
[2019-12-28] MEDS ORDERED: NORVASC5 MG PO (14:02)
[2019-12-28] MEDS ORDERED: LANTUS INS100 UNITS/ SC (14:03)
[2019-12-28] MEDS ORDERED: SODIUM BICARBO325 MG PO (14:03)
[2019-12-28 14:52] LABS: BASOPHILS 0.1 % (0-2); EOSINOPHILS 0.3 % (0-7); HEMATOCRIT 35.5 % (36.0-48.0); HEMOGLOBIN 11.7 g/dL (12-16); IMMATURE GRANULOCYTES 0.8 % (0-5); LYMPHOCYTES 13.1 % (15-50); MCH 27.6 pg (26.0-34.0); MCV 83.7 fL (80.0-100.0); MEAN PLATELET VOLUME 9.6 fL (7.4-10.4); MONOCYTES 6.2 % (2-11); NEUTROPHILS 79.5 % (40-80); RBC 4.24 10x6/uL (4.00-5.40); RDW 14.9 % (11.5-14.5); WBC 15.1 10x3/uL (4.8-10.8)
[2019-12-28 15:04] LABS: PLATELET COUNT 308 10x3/uL (130-400)
[2019-12-28 15:11] LABS: ANION GAP 18.3 mmol/L (8-16); CARBON DIOXIDE 17.3 mmol/L (21.0-32.0); CREATININE - SERUM 2.3 mg/dL (0.6-1.3); POTASSIUM - SERUM 3.6 mmol/L (3.5-5.1)
[2019-12-28 15:16] LABS: ALBUMIN 3.8 g/dL (3.4-5.0); BILIRUBIN - TOTAL 0.36 mg/dL (0.2-1.3); PROTEIN - SERUM 8.4 g/dL (6.4-8.2)
[2019-12-28 15:47] LABS: BACTERIA FEW /HPF (NONE SEEN); BILIRUBIN NEGATIVE (NEGATIVE); EPITHELIAL CELLS 0-5 /hpf (0-5); KETONE NEGATIVE (NEGATIVE); NITRITE NEGATIVE (NEGATIVE); UROBILINOGEN NORMAL mg/dL (< 2); WHITE CELLS - URINE 0-5 HPF (0-4)
[2019-12-28] MEDS ORDERED: VIBRAMYCIN 100100 MG PO (18:01)
[2019-12-28] MEDS ORDERED: ZOFRAN ODT4 MG/UDTAB PO (18:01)
[2019-12-28 19:22] VITALS: BP 184/70
== END 2019-12-28 19:22 | disposition other institution (70) ==
LOC: D.ER 13:53
PROVIDERS: Family Medicine
DX: R11.2 Nausea with vomiting, unspecified (principal); J18.9 Pneumonia, unspecified organism; I10 Essential (primary) hypertension; E11.9 Type 2 diabetes mellitus without complications; J44.9 Chronic obstructive pulmonary disease, unspecified